=== PATIENT | male | born 1995 | race Caucasian/White ===

== ENCOUNTER 2016-11-09 14:50 | Emergency (ER) | payer OTHER ==
[~2016-11-09] VITALS: Ht 172.7 cm; Wt 54.5 kg
[2016-11-09 14:50] VITALS: TEMP 99.1
[2016-11-09 16:50] VITALS: BP 129/70; PULSE 75
== END 2016-11-09 16:59 | disposition home or self-care (01) ==
LOC: COL.ER 14:50
DX: T75.89XA Other specified effects of external causes, initial encounter (principal); Y92.89 Other specified places as the place of occurrence of the external cause
CPT/HCPCS: J7030

== ENCOUNTER 2016-11-14 12:49 | Outpatient (RCR) | payer OTHER | END 2016-12-06 11:24 | LOC: WSOH 12:49 | DX: T59.4X1A Toxic effect of chlorine gas, accidental (unintentional), initial encounter (principal); Y92.34 Swimming pool (public) as the place of occurrence of the external cause; Y99.0 Civilian activity done for income or pay ==